=== PATIENT | female | born 1960 | race Caucasian/White ===

== ENCOUNTER 2017-06-24 16:06 | Emergency (ER) | payer MEDICAID, OTHER ==
[~2017-06-24] VITALS: Ht 172.7 cm; Wt 65.0 kg
[~2017-06-24 16:06] MED LIST: IBUP-1984 PO; NO HOME MEDS
[2017-06-24] MEDS ORDERED: ipratropium/albuterol 3ml nebule NEB ONE (16:35)
[2017-06-24] MEDS ORDERED: ALBU18HF2 INH (17:16)
[2017-06-24 17:33] VITALS: BP 128/88
== END 2017-06-24 17:39 | disposition home or self-care (01) ==
LOC: ER 16:07
DX: J44.1 Chronic obstructive pulmonary disease with (acute) exacerbation (principal); F17.210 Nicotine dependence, cigarettes, uncomplicated; Z79.899 Other long term (current) drug therapy
CPT/HCPCS: 71045; 94640; 94760; 99283

== ENCOUNTER 2017-06-26 11:42 | Inpatient (IN) | payer MEDICAID ==
[~2017-06-26] VITALS: Ht 162.6 cm; Wt 65.9 kg
[~2017-06-26 11:42] MED LIST changes: +ALBU18HF2 INH
[2017-06-26] MEDS ORDERED: normal saline 1000ML IV soln IV ONE (12:10)
[2017-06-26 12:31] LABS: BASOPHILS % (AUTO) 0.1 % (0-1); EOSINOPHILS % (AUTO) 0.3 % (0-6); HEMATOCRIT 43.5 % (35.0-45.0); HEMOGLOBIN 15.2 g/dl (12.0-16.0); LYMPHOCYTES # (AUTO) 0.5 X10'3 (1.1-4.8); MEAN CORPUSCULAR HEMOGLOBIN 30.6 PG (27.0-31.0); MEAN CORPUSCULAR HGB CONC 34.9 % (33.0-36.5); MEAN CORPUSCULAR VOLUME 87.8 FL (78-98); MEAN PLATELET VOLUME 7.2 FL (7.4-10.4); MONOCYTES # (AUTO) 0.6 X10'3 (0-0.9); MONOCYTES % (AUTO) 7.2 % (2-12); NEUTROPHILS # (AUTO) 7.5 X10'3 (1.8-7.7); NEUTROPHILS % (AUTO) 86.4 % (42-75); PLATELET COUNT 182 X10'3 (140-440); RED BLOOD COUNT 4.96 X10'6 (4.20-5.60); RED CELL DISTRIBUTION WIDTH 13.2 % (11.5-14.5); WHITE BLOOD COUNT 8.6 X10'3 (4.5-11.0)
[2017-06-26 12:41] LABS: PARTIAL THROMBOPLASTIN TIME 29 SECONDS (22-32); PROTHROMBIN TIME 10.5 SECONDS (9.0-12.0)
[2017-06-26 12:49] LABS: ALANINE AMINOTRANSFERASE 16 U/L (12-78); ALBUMIN 3.7 G/DL (3.4-5.0); ALBUMIN/GLOBULIN RATIO 0.9 (1.1-1.5); ALKALINE PHOSPHATASE 108 IU/L (46-116); ANION GAP 12 (8-16); ASPARTATE AMINO TRANSFERASE 17 U/L (10-37); BILIRUBIN,TOTAL 0.4 MG/DL (0.1-1.0); BLOOD UREA NITROGEN 10 MG/DL (7-18); BUN/CREATININE RATIO 13.5 (6.6-38.0); CALCIUM 9.3 MG/DL (8.5-10.1); CHLORIDE 99 MMOL/L (99-107); CREATININE 0.74 MG/DL (0.40-0.90); GLUCOSE 103 MG/DL (70-104); POTASSIUM 3.7 MMOL/L (3.5-5.1); SODIUM 134 MMOL/L (135-145); TOTAL CARBON DIOXIDE 22.7 MMOL/L (24-32); TOTAL PROTEIN 7.7 G/DL (6.4-8.2); eGFR 80 ML/MIN
[2017-06-26 13:24] LABS: PLATELET ESTIMATE NORMAL; TOTAL CELLS COUNTED 100
[2017-06-26] MEDS ORDERED: levoFLOXACIN-Levaquin 750MG/D5 150 ML IV STA (13:31)
[2017-06-26] MEDS ORDERED: HYDROmorphone inj. 0.5 MG/0.5 ML DISP.SYRIN IV PRN ×2 (14:10)
[2017-06-26] MEDS ORDERED: magnesium 2GM in 50ml NS 50 ML IV PRN (14:10)
[2017-06-26] MEDS ORDERED: morphine 4 MG/ML inj SYRINge IV PRN (14:10)
[2017-06-26] MEDS ORDERED: ondansetron/PF 4mg/2ml inj IV PRN (14:10)
[2017-06-26] MEDS ORDERED: mag hydrox/Alum hydrox/simeth 30ml oral suspension PO PRN (14:10)
[2017-06-26] MEDS ORDERED: potassium Cl 40MEQ/NS 500ml 500 ML IV PRN ×2 (14:10)
[2017-06-26] MEDS ORDERED: magnesium hydroxide 30ml (MOM) UD suspension PO PRN (14:10)
[2017-06-26] MEDS ORDERED: acetaminophen 325mg tablet PO PRN (14:10)
[2017-06-26] MEDS ORDERED: HYDROcodone/acetaminophen 5mg/325mg tablet PO PRN (14:10)
[2017-06-26] MEDS ORDERED: HYDROcodone/acetaminophen 10/325mg tab PO PRN (14:10)
[2017-06-26] MEDS ORDERED: potassium Cl 20 mEq SR tablet PO PRN (14:10)
[2017-06-26] MEDS ORDERED: magnesium 4gm in 100ml NS 100 ML IV PRN (14:10)
[2017-06-26] MEDS ORDERED: magnesium Cl slow-release 64mg tablet PO PRN (14:10)
[2017-06-26] MEDS ORDERED: albuterol 2.5 MG/3 ML nebule NEB PRN (14:25)
[2017-06-26] MEDS ORDERED: TIOT18CA3 (16:53)
[2017-06-26 17:29] LABS: URINE HCG NEGATIVE (NEG)
[2017-06-26 17:33] LABS: CLARITY,URINE CLEAR (Clear); COLOR,URINE YELLOW (Yellow); GLUCOSE, URINE NEGATIVE (Neg); KETONES,URINE 40 mg/dl (Neg); LEUKOCYTE ESTERASE ,URINE NEGATIVE (Neg); NITRITES, URINE NEGATIVE (Neg); OCCULT BLOOD,URINE MODERATE (Neg); PH,URINE 5.5 (4.8-8.0); PROTEIN,URINE NEGATIVE (Neg); UROBILINOGEN,URINE 0.2 E.U/dL (0.2-1.0)
[2017-06-26 17:35] LABS: UA COLLECTION TYPE CLN CATCH MIDSTREAM
[2017-06-26 17:39] LABS: BACTERIA,URINE NONE SEEN /HPF (Neg); RBC,URINE 0-2 /HPF (0-2); SQUAMOUS EPITHELIAL CELL,UR FEW /LPF (FEW); WBC,URINE 0-4 /HPF (0-4)
[2017-06-26] MEDS ORDERED: temazepam 15mg capsule PO PRN (21:00)
[2017-06-26 23:00] VITALS: BP 143/79
[2017-06-27 04:33] LABS: BASOPHILS % (AUTO) 0.1 % (0-1); EOSINOPHILS # (AUTO) 0.1 X10'3 (0-0.9); EOSINOPHILS % (AUTO) 0.6 % (0-6); HEMATOCRIT 37.7 % (35.0-45.0); HEMOGLOBIN 13.4 g/dl (12.0-16.0); LYMPHOCYTES # (AUTO) 1.2 X10'3 (1.1-4.8); LYMPHOCYTES % (AUTO) 13.6 % (21-51); MEAN CORPUSCULAR HEMOGLOBIN 30.8 PG (27.0-31.0); MEAN CORPUSCULAR HGB CONC 35.5 % (33.0-36.5); MEAN CORPUSCULAR VOLUME 86.9 FL (78-98); MEAN PLATELET VOLUME 7.8 FL (7.4-10.4); MONOCYTES % (AUTO) 11.2 % (2-12); NEUTROPHILS # (AUTO) 6.5 X10'3 (1.8-7.7); NEUTROPHILS % (AUTO) 74.5 % (42-75); PLATELET COUNT 159 X10'3 (140-440); RED BLOOD COUNT 4.34 X10'6 (4.20-5.60); WHITE BLOOD COUNT 8.7 X10'3 (4.5-11.0)
[2017-06-27 04:50] LABS: ALBUMIN 2.8 G/DL (3.4-5.0); ANION GAP 10 (8-16); BLOOD UREA NITROGEN 8 MG/DL (7-18); BUN/CREATININE RATIO 11.8 (6.6-38.0); CALCIUM 8.6 MG/DL (8.5-10.1); CHLORIDE 100 MMOL/L (99-107); CREATININE 0.68 MG/DL (0.40-0.90); GLUCOSE 103 MG/DL (70-104); MAGNESIUM 1.8 MG/DL (1.5-2.4); POTASSIUM 3.3 MMOL/L (3.5-5.1); SODIUM 134 MMOL/L (135-145); TOTAL CARBON DIOXIDE 23.7 MMOL/L (24-32); eGFR 89 ML/MIN
[2017-06-27] MEDS: K and/or MAG REPLACEMENT MC SCH (08:00)
[2017-06-27] MEDS: enoxaparin 40mg/0.4ml syringe SUBCUT SCH (08:00)
[2017-06-27] MEDS: potassium Cl 20 mEq SR tablet PO PRN ×4 (09:12→17:32)
[2017-06-27] MEDS: levoFLOXACIN-Levaquin 750MG/D5 150 ML IV SCH (09:13)
[2017-06-27 11:00] VITALS: BP 124/77
[2017-06-27 18:00] VITALS: BP 133/84
[2017-06-28] VITALS: BP 109/78
[2017-06-28 05:12] LABS: BASOPHILS % (AUTO) 0.2 % (0-1); EOSINOPHILS # (AUTO) 0.1 X10'3 (0-0.9); EOSINOPHILS % (AUTO) 2.2 % (0-6); HEMATOCRIT 39.7 % (35.0-45.0); HEMOGLOBIN 13.8 g/dl (12.0-16.0); LYMPHOCYTES # (AUTO) 1.6 X10'3 (1.1-4.8); LYMPHOCYTES % (AUTO) 25.2 % (21-51); MEAN CORPUSCULAR HEMOGLOBIN 30.4 PG (27.0-31.0); MEAN CORPUSCULAR HGB CONC 34.8 % (33.0-36.5); MEAN CORPUSCULAR VOLUME 87.4 FL (78-98); MEAN PLATELET VOLUME 7.9 FL (7.4-10.4); MONOCYTES # (AUTO) 0.9 X10'3 (0-0.9); MONOCYTES % (AUTO) 13.5 % (2-12); NEUTROPHILS # (AUTO) 3.7 X10'3 (1.8-7.7); NEUTROPHILS % (AUTO) 58.9 % (42-75); PLATELET COUNT 177 X10'3 (140-440); RED BLOOD COUNT 4.54 X10'6 (4.20-5.60); RED CELL DISTRIBUTION WIDTH 13.1 % (11.5-14.5); WHITE BLOOD COUNT 6.3 X10'3 (4.5-11.0)
[2017-06-28 05:30] LABS: ALBUMIN 2.9 G/DL (3.4-5.0); ANION GAP 8 (8-16); BLOOD UREA NITROGEN 10 MG/DL (7-18); BUN/CREATININE RATIO 14.3 (6.6-38.0); CALCIUM 9.1 MG/DL (8.5-10.1); CHLORIDE 103 MMOL/L (99-107); GLUCOSE 94 MG/DL (70-104); MAGNESIUM 2.1 MG/DL (1.5-2.4); POTASSIUM 3.7 MMOL/L (3.5-5.1); SODIUM 137 MMOL/L (135-145); TOTAL CARBON DIOXIDE 26.2 MMOL/L (24-32); eGFR 86 ML/MIN
[2017-06-28] MEDS: enoxaparin 40mg/0.4ml syringe SUBCUT SCH (07:53)
[2017-06-28] MEDS: levoFLOXACIN-Levaquin 750MG/D5 150 ML IV SCH (08:00)
[2017-06-28] MEDS: K and/or MAG REPLACEMENT MC SCH (08:00)
[2017-06-28] MEDS ORDERED: pantoprazole 40 MG vial IV SCH (08:00)
[2017-06-28 08:13] VITALS: BP 122/85
[2017-06-28 08:51] VITALS: BP 122/85
[2017-06-28 11:00] VITALS: BP 121/81
[2017-06-28] MEDS: ipratropium/albuterol 3ml nebule NEB SCH ×2 (11:00→12:01)
[2017-06-28] MEDS ORDERED: LEVO750T21 PO (12:02)
[2017-06-28] MEDS ORDERED: PRED10TA23 PO (12:06)
== END 2017-06-28 13:18 | disposition home or self-care (01) | DRG 140 ==
LOC: ER 11:42 → ED HOLD 14:06 → SUR 3N 23:26
PROVIDERS: ADMIT Internal Medicine; ATTEND Family Medicine
DX: J44.0 Chronic obstructive pulmonary disease with (acute) lower respiratory infection (principal); J18.9 Pneumonia, unspecified organism; J44.9 Chronic obstructive pulmonary disease, unspecified; F17.200 Nicotine dependence, unspecified, uncomplicated; Z79.899 Other long term (current) drug therapy
CPT/HCPCS: 36415; 71045; 80048; 80053; 81001; 81025; 83605; 83735; 84145; 85025; 85610; 85730; 87040; 87070; 87502; 87503; 93005; 94640; 94760; 96360; 99285; C9113; J1650; J1956; J7030